=== PATIENT | female | born 1955 | race Caucasian/White ===

== ENCOUNTER 2018-01-02 21:51 | Emergency (ER) | payer BC, OTHER ==
[2018-01-03 02:47] LABS: ADD MAN DIFF? NO
[2018-01-03 02:49] LABS: ABNORMAL IP MESSAGE 1; BASOPHIL # 0.1 10^3/ul (0.0-0.1); BASOPHILS % 0.9 % (0.0-2.0); EOSINOPHILS # 0.3 10^3/ul (0.0-0.5); EOSINOPHILS % 2.1 % (0.0-7.0); HEMATOCRIT 39.3 % (37.0-47.0); HEMOGLOBIN 12.9 g/dl (12.0-16.0); LYMPHOCYTES # 6.1 10^3/ul (0.8-2.9); LYMPHOCYTES % 40.1 % (15.0-51.0); MEAN CORPUSCULAR HEMOGLOBIN 27.1 pg (29.0-33.0); MEAN CORPUSCULAR HGB CONC 32.8 g/dl (32.0-37.0); MEAN CORPUSCULAR VOLUME 82.6 fl (82.0-101.0); MEAN PLATELET VOLUME 11.6 fl (7.4-10.4); MONOCYTE # 0.9 10^3/ul (0.3-0.9); MONOCYTES % 5.9 % (0.0-11.0); NEUTROPHIL # 7.7 10^3/ul (1.6-7.5); NEUTROPHILS % 50.6 % (39.0-77.0); PLATELET COUNT 337 10^3/UL (140-415); RED BLOOD COUNT 4.76 10^6/ul (4.20-5.40); RED CELL DISTRIBUTION WIDTH 14.5 % (11.5-14.5)
[2018-01-03 02:49] LABS: WHITE BLOOD COUNT 15.2 10^3/ul (4.8-10.8)
[2018-01-03 03:02] LABS: ADD UMIC NO; POSITIVE DIFF @See below; UR ASCORBIC ACID NEGATIVE (NEGATIVE); UR BILIRUBIN (Dip) NEGATIVE (NEGATIVE); UR BLOOD (Dip) NEGATIVE (NEGATIVE); UR CLARITY CLEAR (CLEAR); UR COLOR YELLOW (YELLOW); UR GLUCOSE (Dip) 3+ mg/dL (NEGATIVE); UR KETONES (Dip) NEGATIVE (NEGATIVE); UR LEUKOCYTE ESTERASE (Dip) NEGATIVE Leu/ul (NEGATIVE); UR NITRITE (Dip) NEGATIVE (NEGATIVE); UR SPECIFIC GRAVITY (Dip) 1.025 (1.003-1.030); UR TOTAL PROTEIN (Dip) NEGATIVE (NEGATIVE); UR UROBILINOGEN (Dip) NEGATIVE (NEGATIVE)
[2018-01-03 03:08] LABS: ALANINE AMINOTRANSFERASE 25 IU/L (13-69); ALBUMIN 4.8 g/dl (3.3-4.9); ALBUMIN/GLOBULIN RATIO 1.09; ALKALINE PHOSPHATASE 87 IU/L (42-121); ANION GAP 20 (8-16); ASPARTATE AMINO TRANSFERASE 29 IU/L (15-46); BILIRUBIN,INDIRECT 0.1 mg/dl (0-1.1); BILIRUBIN,TOTAL 0.1 mg/dl (0.2-1.3); BLOOD UREA NITROGEN 21 mg/dl (7-20); CALCIUM 9.7 mg/dl (8.4-10.2); CARBON DIOXIDE 24 mmol/L (21-31); CHLORIDE 106 mmol/L (97-110); CHOL/HDL RATIO 2.9 RATIO; CHOLESTEROL 141 mg/dl (100-200); GLUCOSE 126 mg/dl (70-220); HDL CHOLESTEROL 48 mg/dl (35-98); LDL CHOLESTEROL,CALCULATED 53 mg/dl; POTASSIUM 4.4 mmol/L (3.5-5.1); SODIUM 146 mmol/L (135-144); TOTAL PROTEIN 9.2 g/dl (6.1-8.1); TRIGLYCERIDES 198 mg/dl (0-149)
[2018-01-03 03:21] LABS: HEMOGLOBIN A1C 8.5 % (0-5.9)
[2018-01-03 03:25] LABS: INR 0.93; PROTIME 12.5 Sec (11.9-14.9)
[2018-01-03 03:26] LABS: PARTIAL THROMBOPLASTIN TIME 29.7 Sec (25.0-35.0)
[2018-01-03 03:28] LABS: AMPHETAMINE/METHAMPHETAMINE Negative (NEGATIVE); BARBITURATES Negative (NEGATIVE); BENZODIAZEPINES Negative (NEGATIVE); CANNABINOIDS Negative (NEGATIVE); COCAINE Negative (NEGATIVE); OPIATES Negative (NEGATIVE); TROPONIN-I < 0.012 ng/ml (0.00-0.12)
[2018-01-03] MEDS: ONDANSETRON 4 MG INJ IV (03:35)
[2018-01-03] MEDS: morphine 4 MG/ML VIAL IV (03:35)
[2018-01-03] MEDS: ACETAMINOPHEN 1000MG/100ML IV 100 ML IVPB (04:48)
== END 2018-01-03 05:05 | disposition home or self-care (01) ==
LOC: E/R 21:51
DX: H20.9 Unspecified iridocyclitis (principal); I10 Essential (primary) hypertension; E11.9 Type 2 diabetes mellitus without complications; R06.02 Shortness of breath; Z79.4 Long term (current) use of insulin
CPT/HCPCS: 36415; 70450; 71045; 80053; 80061; 80307; 81003; 82962; 83036; 84484; 85025; 85610; 85730; 93005; 96374; 96375; 99285-25

== ENCOUNTER 2018-08-13 08:59 | Emergency (ER) | payer SELFPAY, BC ==
[2018-08-13 09:52] LABS: ADD UMIC YES; UR ASCORBIC ACID NEGATIVE (NEGATIVE); UR BILIRUBIN (Dip) NEGATIVE (NEGATIVE); UR BLOOD (Dip) NEGATIVE (NEGATIVE); UR CLARITY CLEAR (CLEAR); UR COLOR STRAW (YELLOW); UR GLUCOSE (Dip) 3+ mg/dL (NEGATIVE); UR KETONES (Dip) NEGATIVE (NEGATIVE); UR LEUKOCYTE ESTERASE (Dip) TRACE Leu/ul (NEGATIVE); UR NITRITE (Dip) NEGATIVE (NEGATIVE); UR RBC 1 /HPF (0-5); UR SPECIFIC GRAVITY (Dip) 1.021 (1.003-1.030); UR TOTAL PROTEIN (Dip) NEGATIVE (NEGATIVE); UR UROBILINOGEN (Dip) NEGATIVE (NEGATIVE); UR WBC 2 /HPF (0-5)
[2018-08-13 10:02] LABS: WHITE BLOOD COUNT 12.4 10^3/ul (4.8-10.8)
[2018-08-13 10:02] LABS: ADD MAN DIFF? NO; BASOPHIL # 0.1 10^3/ul (0.0-0.1); BASOPHILS % 0.6 % (0.0-2.0); EOSINOPHILS # 0.1 10^3/ul (0.0-0.5); HEMATOCRIT 39.2 % (37.0-47.0); HEMOGLOBIN 12.9 g/dl (12.0-16.0); LYMPHOCYTES # 4.8 10^3/ul (0.8-2.9); LYMPHOCYTES % 38.3 % (15.0-51.0); MEAN CORPUSCULAR HEMOGLOBIN 27.7 pg (29.0-33.0); MEAN CORPUSCULAR HGB CONC 32.9 g/dl (32.0-37.0); MEAN CORPUSCULAR VOLUME 84.1 fl (82.0-101.0); MEAN PLATELET VOLUME 10.1 fl (7.4-10.4); MONOCYTE # 0.7 10^3/ul (0.3-0.9); MONOCYTES % 5.5 % (0.0-11.0); NEUTROPHIL # 6.8 10^3/ul (1.6-7.5); NEUTROPHILS % 54.4 % (39.0-77.0); PLATELET COUNT 355 10^3/UL (140-415); RED BLOOD COUNT 4.66 10^6/ul (4.20-5.40); RED CELL DISTRIBUTION WIDTH 13.5 % (11.5-14.5)
[2018-08-13] MEDS: MECLIZINE 12.5 MG TAB PO (10:03)
[2018-08-13] MEDS: SOD CHLORIDE 0.9% 500 ML IV (10:03)
[2018-08-13] MEDS: ONDANSETRON 4 MG INJ IV (10:03)
[2018-08-13 10:21] LABS: INR 0.93; PROTIME 12.6 Sec (11.9-14.9)
[2018-08-13 10:26] LABS: ANION GAP 14 (5-13); BLOOD UREA NITROGEN 14 mg/dl (7-20); CALCIUM 9.7 mg/dl (8.4-10.2); CARBON DIOXIDE 24 mmol/L (21-31); CHLORIDE 100 mmol/L (97-110); CREATININE 0.52 mg/dl (0.44-1.00); Estimated GFR > 60 mL/min (>60); GLUCOSE 147 mg/dl (70-220); SODIUM 138 mmol/L (135-144)
[2018-08-13 10:37] LABS: TROPONIN-I < 0.012 ng/ml (0.000-0.120)
== END 2018-08-13 13:14 | disposition home or self-care (01) ==
LOC: E/R 08:59
DX: R42 Dizziness and giddiness (principal); D72.829 Elevated white blood cell count, unspecified; I10 Essential (primary) hypertension; E11.9 Type 2 diabetes mellitus without complications; Z79.4 Long term (current) use of insulin; Z86.73 Personal history of transient ischemic attack (TIA), and cerebral infarction without residual deficits
CPT/HCPCS: 36415; 70450; 71045; 80048; 81001; 84484; 85025; 85610; 93005; 96374; 99285-25